=== PATIENT | male | born 1990 | race Two or more races ===

== ENCOUNTER 2017-09-10 08:43 | Emergency (ER) | payer OTHER ==
[~2017-09-10] VITALS: Ht 170.2 cm; Wt 64.9 kg
[~2017-09-10 08:43] MED LIST: NORCO 5/3251 TABLET PO
[2017-09-10 08:47] VITALS: BP 106/74
== END 2017-09-10 10:22 | disposition home or self-care (01) ==
LOC: EME 08:43
PROC: 2W3CX1Z Immobilization of Right Lower Arm using Splint (ICD-10-PCS; principal; 2017-09-10)
DX: S62.390A Other fracture of second metacarpal bone, right hand, initial encounter for closed fracture (principal); S61.411A Laceration without foreign body of right hand, initial encounter; Y04.2XXA Assault by strike against or bumped into by another person, initial encounter
CPT/HCPCS: 73130; 99281; 99284